=== PATIENT | male | born 1975 | race Caucasian/White ===

== ENCOUNTER 2023-02-28 19:54 | Emergency (ER) | payer BC, SELFPAY ==
[2023-02-28] VITALS (22 sets, daily range): BP systolic 128–186; BP diastolic 83–119; PULSE 84–128; RESP 16–18; TEMP 36.3; O2SAT 87–99; BMI 27.4
--- NOTE | 2023-02-28 20:38 | CRLHL7_ITS ---
For Patients: As a result of the Century Cures Act, medical imaging exams and procedure reports are released immediately into your electronic medical record. You may view this report before your referring provider. If you have questions, please contact your health care provider. INDICATIONS: Chest pain. TECHNIQUE: Chest 2 portable views. COMPARISON: None FINDINGS: No pneumothorax or pleural effusion. Lungs are clear. Cardiac and mediastinal contours are within normal limits. Upper abdomen and osseous structures as imaged show no acute abnormality. IMPRESSION: No evidence of acute cardiopulmonary disease. Dictated by Melvin Sheppard MD @ 02/28/2023 9:58:54 PM (Electronically Signed)
[2023-02-28 20:55] LABS: Troponin, Point-of-Care* 0.03 ng/ml (0.01-0.04)
--- NOTE | 2023-02-28 20:58 | ED.GENADULT ---
HPI - General Adult General Date Seen: 02/28/23 <Ning Sims MD - Last Filed: 03/01/23 14:43> Chief complaint: Chest Pain <Ning Sims MD - Last Filed: 03/01/23 14:43> Stated complaint: Tightness in chest <Ning Sims MD - Last Filed: 03/01/23 14:43> Time Seen by Provider: 02/28/23 20:32 <Ning Sims MD - Last Filed: 03/01/23 14:43> Source: patient <Ning Sims MD - Last Filed: 03/01/23 14:43> Mode of arrival: ambulatory <Ning Sims MD - Last Filed: 03/01/23 14:43> Limitations: no limitations <Ning Sims MD - Last Filed: 03/01/23 14:43> History of Present Illness HPI narrative: Patient is a 47-year-old male with in general very little medical care, smoker, who has been having some chest pain on and off for the past couple of weeks. He says he notices it when he tries to walk any amount of distance and it gets better when he stops. Today he was at home, not really doing anything active in developed same kind of chest pain associated with some tingling in his left arm and diaphoresis. He said he was unsure if he was having a problem with his heart or just a panic attack thinking about his heart but he decided he better get it checked out. He had chest pain and route to the hospital, but on arrival here says that it has resolved. He denies shortness of breath, abdominal pain, fevers, leg swelling or pain or other symptoms. <Ning Sims MD - Last Filed: 03/01/23 14:43> Related Data Allergies/adverse reactions: Allergies Allergy/AdvReac Type Severity Reaction Status Date / Time penicillin G Allergy Severe Verified 02/28/23 20:27 <Ning Sims MD - Last Filed: 03/01/23 14:43> Review of Systems Status of ROS: Reports: 10 or more systems reviewed and unremarkable except as noted in History and below <Ning Sims MD - Last Filed: 03/01/23 14:43> PFSH PFSH Social History: Social History Smoking Status: Current every day smoker <Ning Sims MD - Last Filed: 03/01/23 14:43> Exam Narrative: Exam Narrative: Vital signs as noted above. In general, an alert, well-appearing patient. Head: Normocephalic, atraumatic. Eyes: Pupils are equal reactive. Extraocular movements are full. Conjunctivae are normal. ENT: Mucous membranes are moist. Neck: Supple without lymphadenopathy. Heart: Regular rate and rhythm. No murmur or rub. Lungs: Clear bilaterally. No increased work of breathing, crackles or wheezes. Abdomen: Soft and nontender. No organomegaly. Extremities: Well perfused. No edema. No calf tenderness. Pulses intact. Neurologic: Patient is alert and oriented to person and place. Speech is fluent. Face is symmetric. Moves all extremities equally. Affect: Normal. Skin: Warm and dry. Well perfused. <Ning Sims MD - Last Filed: 03/01/23 14:43> Const: Vital Signs, click to edit/add: Vital Signs - 24 hr 02/28/23 20:00 02/28/23 20:24 02/28/23 20:50 Temperature 97.3 F L Pulse Rate 121 H Pulse Rate [Right Pulse Oximeter] 128 H Respiratory Rate 18 Blood Pressure 164/107 H Blood Pressure [Ri ght Upper Arm] 186/119 H Pulse Oximetry 99 99 95 Oxygen Delivery Me thod Room Air 02/28/23 20:51 02/28/23 21:00 02/28/23 21:01 Temperature Pulse Rate 115 H 113 H 114 H Pulse Rate [Right Pulse Oximeter] Respiratory Rate Blood Pressure 157/104 H Blood Pressure [Ri ght Upper Arm] Pulse Oximetry 97 96 96 Oxygen Delivery Me thod 02/28/23 21:15 02/28/23 21:16 02/28/23 21:30 Temperature Pulse Rate 113 H 117 H 100 Pulse Rate [Right Pulse Oximeter] Respiratory Rate Blood Pressure 145/98 H Blood Pressure [Ri ght Upper Arm] Pulse Oximetry 97 95 97 Oxygen Delivery Me thod 02/28/23 21:32 02/28/23 21:45 02/28/23 22:00 Temperature Pulse Rate 104 H 98 98 Pulse Rate [Right Pulse Oximeter] Respiratory Rate Blood Pressure 139/95 H Blood Pressure [Ri ght Upper Arm] Pulse Oximetry 97 97 96 Oxygen Delivery Me thod 02/28/23 22:02 02/28/23 22:15 02/28/23 22:16 Temperature Pulse Rate 100 100 101 H Pulse Rate [Right Pulse Oximeter] Respiratory Rate Blood Pressure 141/98 H 155/102 H Blood Pressure [Ri ght Upper Arm] Pulse Oximetry 98 96 96 Oxygen Delivery Me thod 02/28/23 22:30 02/28/23 22:31 02/28/23 22:46 Temperature Pulse Rate 84 95 89 Pulse Rate [Right Pulse Oximeter] Respiratory Rate 16 Blood Pressure 144/97 H 140/95 H Blood Pressure [Ri ght Upper Arm] Pulse Oximetry 87 L 96 95 Oxygen Delivery Me thod 02/28/23 23:01 02/28/23 23:16 02/28/23 23:32 Temperature Pulse Rate 88 88 84 Pulse Rate [Right Pulse Oximeter] Respiratory Rate 16 16 16 Blood Pressure 133/91 H 128/90 H 140/93 H Blood Pressure [Ri ght Upper Arm] Pulse Oximetry 96 97 96 Oxygen Delivery Me thod 02/28/23 23:46 03/01/23 00:01 03/01/23 00:16 Temperature Pulse Rate 85 80 70 Pulse Rate [Right Pulse Oximeter] Respiratory Rate 16 16 16 Blood Pressure 131/83 130/81 117/78 Blood Pressure [Ri ght Upper Arm] Pulse Oximetry 96 97 97 Oxygen Delivery Me thod 03/01/23 00:31 03/01/23 00:46 03/01/23 01:01 Temperature Pulse Rate 73 73 71 Pulse Rate [Right Pulse Oximeter] Respiratory Rate 16 16 16 Blood Pressure 114/76 110/72 109/73 Blood Pressure [Ri ght Upper Arm] Pulse Oximetry 95 96 94 Oxygen Delivery Me thod 03/01/23 01:16 03/01/23 01:32 03/01/23 01:46 Temperature Pulse Rate 86 71 66 Pulse Rate [Right Pulse Oximeter] Respiratory Rate 16 16 16 Blood Pressure 110/73 113/78 103/73 Blood Pressure [Ri ght Upper Arm] Pulse Oximetry 95 97 96 Oxygen Delivery Me thod 03/01/23 02:01 03/01/23 02:32 03/01/23 02:48 Temperature Pulse Rate 63 65 71 Pulse Rate [Right Pulse Oximeter] Respiratory Rate 16 16 16 Blood Pressure 117/69 112/71 122/87 Blood Pressure [Ri ght Upper Arm] Pulse Oximetry 95 96 98 Oxygen Delivery Me thod 03/01/23 03:01 03/01/23 04:01 03/01/23 05:01 Temperature Pulse Rate 64 70 65 Pulse Rate [Right Pulse Oximeter] Respiratory Rate 16 16 16 Blood Pressure 118/84 121/82 122/85 Blood Pressure [Ri ght Upper Arm] Pulse Oximetry 96 96 97 Oxygen Delivery Me thod 03/01/23 06:01 03/01/23 07:00 03/01/23 07:06 Temperature Pulse Rate 70 59 L 79 Pulse Rate [Right Pulse Oximeter] Respiratory Rate 16 Blood Pressure 125/87 Blood Pressure [Ri ght Upper Arm] Pulse Oximetry 96 95 97 Oxygen Delivery Me thod 03/01/23 08:00 03/01/23 08:01 03/01/23 08:02 Temperature Pulse Rate 66 61 65 Pulse Rate [Right Pulse Oximeter] Respiratory Rate Blood Pressure 125/94 H Blood Pressure [Ri ght Upper Arm] Pulse Oximetry 96 96 97 Oxygen Delivery Me thod 03/01/23 09:00 03/01/23 09:02 03/01/23 09:22 Temperature Pulse Rate 62 66 67 Pulse Rate [Right Pulse Oximeter] Respiratory Rate Blood Pressure 119/85 141/88 H Blood Pressure [Ri ght Upper Arm] Pulse Oximetry 96 97 97 Oxygen Delivery Me thod <Ning Sims MD - Last Filed: 03/01/23 14:43> Vital Signs, click to edit/add: Vital Signs - 24 hr 02/28/23 20:00 02/28/23 20:24 02/28/23 20:50 Temperature 97.3 F L Pulse Rate 121 H Pulse Rate [Right Pulse Oximeter] 128 H Respiratory Rate 18 Blood Pressure 164/107 H Blood Pressure [Ri ght Upper Arm] 186/119 H Pulse Oximetry 99 99 95 Oxygen Delivery Me thod Room Air 02/28/23 20:51 02/28/23 21:00 02/28/23 21:01 Temperature Pulse Rate 115 H 113 H 114 H Pulse Rate [Right Pulse Oximeter] Respiratory Rate Blood Pressure 157/104 H Blood Pressure [Ri ght Upper Arm] Pulse Oximetry 97 96 96 Oxygen Delivery Me thod 02/28/23 21:15 02/28/23 21:16 02/28/23 21:30 Temperature Pulse Rate 113 H 117 H 100 Pulse Rate [Right Pulse Oximeter] Respiratory Rate Blood Pressure 145/98 H Blood Pressure [Ri ght Upper Arm] Pulse Oximetry 97 95 97 Oxygen Delivery Me thod 02/28/23 21:32 02/28/23 21:45 02/28/23 22:00 Temperature Pulse Rate 104 H 98 98 Pulse Rate [Right Pulse Oximeter] Respiratory Rate Blood Pressure 139/95 H Blood Pressure [Ri ght Upper Arm] Pulse Oximetry 97 97 96 Oxygen Delivery Me thod 02/28/23 22:02 02/28/23 22:15 02/28/23 22:16 Temperature Pulse Rate 100 100 101 H Pulse Rate [Right Pulse Oximeter] Respiratory Rate Blood Pressure 141/98 H 155/102 H Blood Pressure [Ri ght Upper Arm] Pulse Oximetry 98 96 96 Oxygen Delivery Me thod 02/28/23 22:30 02/28/23 22:31 02/28/23 22:46 Temperature Pulse Rate 84 95 89 Pulse Rate [Right Pulse Oximeter] Respiratory Rate 16 Blood Pressure 144/97 H 140/95 H Blood Pressure [Ri ght Upper Arm] Pulse Oximetry 87 L 96 95 Oxygen Delivery Me thod 02/28/23 23:01 02/28/23 23:16 02/28/23 23:32 Temperature Pulse Rate 88 88 84 Pulse Rate [Right Pulse Oximeter] Respiratory Rate 16 16 16 Blood Pressure 133/91 H 128/90 H 140/93 H Blood Pressure [Ri ght Upper Arm] Pulse Oximetry 96 97 96 Oxygen Delivery Me thod 02/28/23 23:46 03/01/23 00:01 03/01/23 00:16 Temperature Pulse Rate 85 80 70 Pulse Rate [Right Pulse Oximeter] Respiratory Rate 16 16 16 Blood Pressure 131/83 130/81 117/78 Blood Pressure [Ri ght Upper Arm] Pulse Oximetry 96 97 97 Oxygen Delivery Me thod 03/01/23 00:31 03/01/23 00:46 03/01/23 01:01 Temperature Pulse Rate 73 73 71 Pulse Rate [Right Pulse Oximeter] Respiratory Rate 16 16 16 Blood Pressure 114/76 110/72 109/73 Blood Pressure [Ri ght Upper Arm] Pulse Oximetry 95 96 94 Oxygen Delivery Me thod 03/01/23 01:16 03/01/23 01:32 03/01/23 01:46 Temperature Pulse Rate 86 71 66 Pulse Rate [Right Pulse Oximeter] Respiratory Rate 16 16 16 Blood Pressure 110/73 113/78 103/73 Blood Pressure [Ri ght Upper Arm] Pulse Oximetry 95 97 96 Oxygen Delivery Me thod 03/01/23 02:01 03/01/23 02:32 03/01/23 02:48 Temperature Pulse Rate 63 65 71 Pulse Rate [Right Pulse Oximeter] Respiratory Rate 16 16 16 Blood Pressure 117/69 112/71 122/87 Blood Pressure [Ri ght Upper Arm] Pulse Oximetry 95 96 98 Oxygen Delivery Me thod 03/01/23 03:01 03/01/23 04:01 03/01/23 05:01 Temperature Pulse Rate 64 70 65 Pulse Rate [Right Pulse Oximeter] Respiratory Rate 16 16 16 Blood Pressure 118/84 121/82 122/85 Blood Pressure [Ri ght Upper Arm] Pulse Oximetry 96 96 97 Oxygen Delivery Me thod 03/01/23 06:01 03/01/23 07:00 03/01/23 07:06 Temperature Pulse Rate 70 59 L 79 Pulse Rate [Right Pulse Oximeter] Respiratory Rate 16 Blood Pressure 125/87 Blood Pressure [Ri ght Upper Arm] Pulse Oximetry 96 95 97 Oxygen Delivery Me thod 03/01/23 08:00 03/01/23 08:01 03/01/23 08:02 Temperature Pulse Rate 66 61 65 Pulse Rate [Right Pulse Oximeter] Respiratory Rate Blood Pressure 125/94 H Blood Pressure [Ri ght Upper Arm] Pulse Oximetry 96 96 97 Oxygen Delivery Me thod 03/01/23 09:00 03/01/23 09:02 03/01/23 09:22 Temperature Pulse Rate 62 66 67 Pulse Rate [Right Pulse Oximeter] Respiratory Rate Blood Pressure 119/85 141/88 H Blood Pressure [Ri ght Upper Arm] Pulse Oximetry 96 97 97 Oxygen Delivery Me thod <Osvaldo Aguirre DO - Last Filed: 03/01/23 05:10> Documenting provider has reviewed patient's vital signs: yes <Ning Sims MD - Last Filed: 03/01/23 14:43> Course Course ED Course: Patient arrived at about 8:00 p.m. was triaged at 8:24 and had an EKG at that time. I reviewed this initial EKG, which showed a sinus tachycardia at a ventricular rate of 130. He had ST elevation noted in V1 and V2, hyper acute appearing T-waves in the precordium and ST depression in leads 2 3 and F. He also had ST elevation noted in AVR. His initial EKG was concerning for developing STEMI. I went talk to the patient, and at the time I spoke with him he was not having any symptoms. I did look with the bedside ultrasound I did not see clear evidence of wall motion abnormality, no pericardial effusion. I called Cardiology at about 835 to have them review the EKG given that he was not having any symptoms at that time. In the meantime, I did give him a dose of metoprolol given he was significantly hypertensive and tachycardic, and the EKG was repeated at 8:45. The 2nd EKG shows resolution of the ST depression and ST elevation as well as the hyperacute appearing T-waves. He still has an elevated heart rate of 120. He says he feels fine at this time. He took 2 aspirin at home. Other labs are pending at this time including a point of care troponin. Chest x-ray is ordered as well. I spoke with Cardiology at 9:20; I reviewed the EKGs verbally with the filing and polishing supervisor as well as the patient's recent symptoms. He agrees with heparinization and plan for angiogram although the at this time patient does not meet criteria for STEMI/emergent catheterization. His initial troponin was 0.03. CBC shows a normal white blood cell count, hemoglobin of 15.9, metabolic panel is unremarkable, LFTs are unremarkable. CRP is less than 0.5. TSH, D-dimer pending as well as a repeat troponin. I am starting a heparin bolus and drip. Unfortunately, [facility], [place], [facility], [facility] do not have bed availability. I am waiting to hear back from [facility]. Patient is on the wait list for a telemetry bed at [facility] although given that it is 9:40 p.m. my suspicion is a bed would not be available until tomorrow. For now plan is to have him stay in the ER overnight. Low threshold for repeat EKGs for any recurrence of symptoms, if symptoms are recurrent/persistent, EKGs changes are present, or he becomes unstable, emergent transfer. Repeat troponin approximately 60 minutes after the 1st was 0.06. Chest x-ray by my review shows no acute findings, mediastinum is unremarkable. After metoprolol, blood pressure 145/98, heart rate 100. Patient remains symptom-free. D-dimer is still pending, but overall suspicion for PE or dissection is relatively low given intermittent chest pain with exertion over the past couple of weeks and EKG changes on arrival. Patient was still here at 8:00 a.m. when I started my next shift. D-dimer was negative. Had a couple of repeat troponins and peaked at 0.51 this morning at 6:30 a.m.. No further symptoms. Repeat EKG reportedly normal per the overnight doctor. Patient accepted at [facility] and transferred via ground without incident. <Ning Sims MD - Last Filed: 03/01/23 14:43> Vital Signs Vital signs: Initial Vital Signs Pulse Oximetry 99 02/28/23 20:00 Vital Signs Pulse Oximetry 99 02/28/23 20:00 Temperature 97.3 F L 02/28/23 20:24 Pulse Rate 67 03/01/23 09:22 Respiratory Rate 16 03/01/23 06:01 Blood Pressure 141/88 H 03/01/23 09:22 Pulse Oximetry 97 03/01/23 09:22 Oxygen Delivery Method Room Air 02/28/23 20:24 <Ning Sims MD - Last Filed: 03/01/23 14:43> Initial Vital Signs Pulse Oximetry 99 02/28/23 20:00 Vital Signs Pulse Oximetry 99 02/28/23 20:00 Temperature 97.3 F L 02/28/23 20:24 Pulse Rate 67 03/01/23 09:22 Respiratory Rate 16 03/01/23 06:01 Blood Pressure 141/88 H 03/01/23 09:22 Pulse Oximetry 97 03/01/23 09:22 Oxygen Delivery Method Room Air 02/28/23 20:24 <Osvaldo Aguirre DO - Last Filed: 03/01/23 05:10> Medical Decision Making MDM Narrative Medical decision making narrative: Patient was signed out to me for the overnight shift. He still pending a bed at [facility]. Patient continues to have minimal chest pain. Repeat troponin at 02:45 shows has raised to 0.32. States his symptoms are unchanged and vitals are stable at this time. We did do a repeat EKG showing normal sinus rhythm with a rate 64 beats per minute, normal intervals, normal axis, no ST or T-wave abnormalities. This is greatly improved compared to his previous EKGs. <Osvaldo Aguirre, DO - Last Filed: 03/01/23 05:10> Lab Data Labs: Lab Results 02/28/23 02/28/23 02/28/23 Range/Units 20:41 21:06 21:38 WBC 9.46 (4.50-11.00) K/uL RBC 4.96 (4.30-5.90) m/uL Hgb 15.9 (13.5-17.5) gm/dL Hct 45.5 (37.0-53.0) % MCV 92 (80-100) fL MCH 32 (26-34) pg MCHC 35 (32-36) gm/dL RDW Coeff of [place] 13.0 (11.5-15.5) % Plt Count 222 (140-440) K/uL Neut % (Auto) 78.9 H (42.0-72.0) % Lymph % (Auto) 13.5 L (20-44) % [place] % (Auto) 6.1 (0.0-11.0) % Eos % (Auto) 1.1 (0.0-7.0) % Baso % (Auto) 0.3 (0.0-3.0) % Neut # (Auto) 7.50 H (1.7-7.0) K/uL Lymph # (Auto) 1.30 (0.90-2.90) K/uL [place] # (Auto) 0.60 (0.00-0.90) K/UL Eos # (Auto) 0.10 (0.00-0.50) K/uL Baso # (Auto) 0.03 (0.00-0.30) K/uL Abs Immat Gran (auto) 0.01 (0.00-0.30) K/uL Imm/Tot Granulo (auto) 0.1 % INR 1.02 (0.91-1.10) APTT 27 (23-33) Seconds D-Dimer Quant (PE/DVT) 0.37 (0.00-0.50) ug/ml Sodium 136 (135-149) mmol/L Potassium 3.6 (3.6-5.1) mmol/L Chloride 101 (96-114) mmol/L Carbon Dioxide 26 (20-32) mmol/L Anion Gap 9 (7-15) mEq/L BUN 13 (5-24) mg/dL Creatinine 0.9 (0.5-1.5) mg/dL Estimated Creat Clear 98.17 Estimated GFR 106 ml/min Glucose 150 H (60-115) mg/dL Calcium 9.0 (8.4-10.6) mg/dL Total Bilirubin 0.8 (0.1-1.5) mg/dL Direct Bilirubin 0.0 (0.0-0.5) mg/dL AST 48 H (12-35) U/L ALT 19 (4-50) U/L Alkaline Phosphatase 81 (40-150) U/L C-Reactive Protein < 0.5 L (0.5-1.0) mg/dL Total Protein 7.0 (6.0-8.3) g/dL Albumin 4.2 (3.3-5.0) g/dL TSH 0.404 (0.270-4.200) uIU/mL POC Troponin I 0.03 0.06 H (0.01-0.04) ng/ml 03/01/23 03/01/23 03/01/23 Range/Units 02:45 02:46 06:30 WBC 9.05 (4.50-11.00) K/uL RBC 5.04 (4.30-5.90) m/uL Hgb 16.2 (13.5-17.5) gm/dL Hct 46.7 (37.0-53.0) % MCV 93 (80-100) fL MCH 32 (26-34) pg MCHC 35 (32-36) gm/dL RDW Coeff of Francisco (11.5-15.5) % Plt Count 211 (140-440) K/uL Neut % (Auto) (42.0-72.0) % Lymph % (Auto) (20-44) % [place] % (Auto) (0.0-11.0) % Eos % (Auto) (0.0-7.0) % Baso % (Auto) (0.0-3.0) % Neut # (Auto) (1.7-7.0) K/uL Lymph # (Auto) (0.90-2.90) K/uL [place] # (Auto) (0.00-0.90) K/UL Eos # (Auto) (0.00-0.50) K/uL Baso # (Auto) (0.00-0.30) K/uL Abs Immat Gran (auto) (0.00-0.30) K/uL Imm/Tot Granulo (auto) % INR 1.01 (0.91-1.10) APTT 69 H (23-33) Seconds D-Dimer Quant (PE/DVT) (0.00-0.50) ug/ml Sodium (135-149) mmol/L Potassium (3.6-5.1) mmol/L Chloride (96-114) mmol/L Carbon Dioxide (20-32) mmol/L Anion Gap (7-15) mEq/L BUN (5-24) mg/dL Creatinine (0.5-1.5) mg/dL Estimated Creat Clear Estimated GFR ml/min Glucose (60-115) mg/dL Calcium (8.4-10.6) mg/dL Total Bilirubin (0.1-1.5) mg/dL Direct Bilirubin (0.0-0.5) mg/dL AST (12-35) U/L ALT (4-50) U/L Alkaline Phosphatase (40-150) U/L C-Reactive Protein (0.5-1.0) mg/dL Total Protein (6.0-8.3) g/dL Albumin (3.3-5.0) g/dL TSH (0.270-4.200) uIU/mL POC Troponin I 0.32 H 0.51 H (0.01-0.04) ng/ml 03/01/23 Range/Units 09:28 WBC (4.50-11.00) K/uL RBC (4.30-5.90) m/uL Hgb (13.5-17.5) gm/dL Hct (37.0-53.0) % MCV (80-100) fL MCH (26-34) pg MCHC (32-36) gm/dL RDW Coeff of Francisco (11.5-15.5) % Plt Count (140-440) K/uL Neut % (Auto) (42.0-72.0) % Lymph % (Auto) (20-44) % [place] % (Auto) (0.0-11.0) % Eos % (Auto) (0.0-7.0) % Baso % (Auto) (0.0-3.0) % Neut # (Auto) (1.7-7.0) K/uL Lymph # (Auto) (0.90-2.90) K/uL [place] # (Auto) (0.00-0.90) K/UL Eos # (Auto) (0.00-0.50) K/uL Baso # (Auto) (0.00-0.30) K/uL Abs Immat Gran (auto) (0.00-0.30) K/uL Imm/Tot Granulo (auto) % INR (0.91-1.10) APTT 46 H (23-33) Seconds D-Dimer Quant (PE/DVT) (0.00-0.50) ug/ml Sodium (135-149) mmol/L Potassium (3.6-5.1) mmol/L Chloride (96-114) mmol/L Carbon Dioxide (20-32) mmol/L Anion Gap (7-15) mEq/L BUN (5-24) mg/dL Creatinine (0.5-1.5) mg/dL Estimated Creat Clear Estimated GFR ml/min Glucose (60-115) mg/dL Calcium (8.4-10.6) mg/dL Total Bilirubin (0.1-1.5) mg/dL Direct Bilirubin (0.0-0.5) mg/dL AST (12-35) U/L ALT (4-50) U/L Alkaline Phosphatase (40-150) U/L C-Reactive Protein (0.5-1.0) mg/dL Total Protein (6.0-8.3) g/dL Albumin (3.3-5.0) g/dL TSH (0.270-4.200) uIU/mL POC Troponin I (0.01-0.04) ng/ml <Ning Sims MD - Last Filed: 03/01/23 14:43> Lab Results 02/28/23 02/28/23 02/28/23 Range/Units 20:41 21:06 21:38 WBC 9.46 (4.50-11.00) K/uL RBC 4.96 (4.30-5.90) m/uL Hgb 15.9 (13.5-17.5) gm/dL Hct 45.5 (37.0-53.0) % MCV 92 (80-100) fL MCH 32 (26-34) pg MCHC 35 (32-36) gm/dL RDW Coeff of [place] 13.0 (11.5-15.5) % Plt Count 222 (140-440) K/uL Neut % (Auto) 78.9 H (42.0-72.0) % Lymph % (Auto) 13.5 L (20-44) % [place] % (Auto) 6.1 (0.0-11.0) % Eos % (Auto) 1.1 (0.0-7.0) % Baso % (Auto) 0.3 (0.0-3.0) % Neut # (Auto) 7.50 H (1.7-7.0) K/uL Lymph # (Auto) 1.30 (0.90-2.90) K/uL [place] # (Auto) 0.60 (0.00-0.90) K/UL Eos # (Auto) 0.10 (0.00-0.50) K/uL Baso # (Auto) 0.03 (0.00-0.30) K/uL Abs Immat Gran (auto) 0.01 (0.00-0.30) K/uL Imm/Tot Granulo (auto) 0.1 % INR 1.02 (0.91-1.10) APTT 27 (23-33) Seconds D-Dimer Quant (PE/DVT) 0.37 (0.00-0.50) ug/ml Sodium 136 (135-149) mmol/L Potassium 3.6 (3.6-5.1) mmol/L Chloride 101 (96-114) mmol/L Carbon Dioxide 26 (20-32) mmol/L Anion Gap 9 (7-15) mEq/L BUN 13 (5-24) mg/dL Creatinine 0.9 (0.5-1.5) mg/dL Estimated Creat Clear 98.17 Estimated GFR 106 ml/min Glucose 150 H (60-115) mg/dL Calcium 9.0 (8.4-10.6) mg/dL Total Bilirubin 0.8 (0.1-1.5) mg/dL Direct Bilirubin 0.0 (0.0-0.5) mg/dL AST 48 H (12-35) U/L ALT 19 (4-50) U/L Alkaline Phosphatase 81 (40-150) U/L C-Reactive Protein < 0.5 L (0.5-1.0) mg/dL Total Protein 7.0 (6.0-8.3) g/dL Albumin 4.2 (3.3-5.0) g/dL TSH 0.404 (0.270-4.200) uIU/mL POC Troponin I 0.03 0.06 H (0.01-0.04) ng/ml 03/01/23 03/01/23 03/01/23 Range/Units 02:45 02:46 06:30 WBC 9.05 (4.50-11.00) K/uL RBC 5.04 (4.30-5.90) m/uL Hgb 16.2 (13.5-17.5) gm/dL Hct 46.7 (37.0-53.0) % MCV 93 (80-100) fL MCH 32 (26-34) pg MCHC 35 (32-36) gm/dL RDW Coeff of Francisco (11.5-15.5) % Plt Count 211 (140-440) K/uL Neut % (Auto) (42.0-72.0) % Lymph % (Auto) (20-44) % [place] % (Auto) (0.0-11.0) % Eos % (Auto) (0.0-7.0) % Baso % (Auto) (0.0-3.0) % Neut # (Auto) (1.7-7.0) K/uL Lymph # (Auto) (0.90-2.90) K/uL [place] # (Auto) (0.00-0.90) K/UL Eos # (Auto) (0.00-0.50) K/uL Baso # (Auto) (0.00-0.30) K/uL Abs Immat Gran (auto) (0.00-0.30) K/uL Imm/Tot Granulo (auto) % INR 1.01 (0.91-1.10) APTT 69 H (23-33) Seconds D-Dimer Quant (PE/DVT) (0.00-0.50) ug/ml Sodium (135-149) mmol/L Potassium (3.6-5.1) mmol/L Chloride (96-114) mmol/L Carbon Dioxide (20-32) mmol/L Anion Gap (7-15) mEq/L BUN (5-24) mg/dL Creatinine (0.5-1.5) mg/dL Estimated Creat Clear Estimated GFR ml/min Glucose (60-115) mg/dL Calcium (8.4-10.6) mg/dL Total Bilirubin (0.1-1.5) mg/dL Direct Bilirubin (0.0-0.5) mg/dL AST (12-35) U/L ALT (4-50) U/L Alkaline Phosphatase (40-150) U/L C-Reactive Protein (0.5-1.0) mg/dL Total Protein (6.0-8.3) g/dL Albumin (3.3-5.0) g/dL TSH (0.270-4.200) uIU/mL POC Troponin I 0.32 H 0.51 H (0.01-0.04) ng/ml 03/01/23 Range/Units 09:28 WBC (4.50-11.00) K/uL RBC (4.30-5.90) m/uL Hgb (13.5-17.5) gm/dL Hct (37.0-53.0) % MCV (80-100) fL MCH (26-34) pg MCHC (32-36) gm/dL RDW Coeff of Francisco (11.5-15.5) % Plt Count (140-440) K/uL Neut % (Auto) (42.0-72.0) % Lymph % (Auto) (20-44) % [place] % (Auto) (0.0-11.0) % Eos % (Auto) (0.0-7.0) % Baso % (Auto) (0.0-3.0) % Neut # (Auto) (1.7-7.0) K/uL Lymph # (Auto) (0.90-2.90) K/uL [place] # (Auto) (0.00-0.90) K/UL Eos # (Auto) (0.00-0.50) K/uL Baso # (Auto) (0.00-0.30) K/uL Abs Immat Gran (auto) (0.00-0.30) K/uL Imm/Tot Granulo (auto) % INR (0.91-1.10) APTT 46 H (23-33) Seconds D-Dimer Quant (PE/DVT) (0.00-0.50) ug/ml Sodium (135-149) mmol/L Potassium (3.6-5.1) mmol/L Chloride (96-114) mmol/L Carbon Dioxide (20-32) mmol/L Anion Gap (7-15) mEq/L BUN (5-24) mg/dL Creatinine (0.5-1.5) mg/dL Estimated Creat Clear Estimated GFR ml/min Glucose (60-115) mg/dL Calcium (8.4-10.6) mg/dL Total Bilirubin (0.1-1.5) mg/dL Direct Bilirubin (0.0-0.5) mg/dL AST (12-35) U/L ALT (4-50) U/L Alkaline Phosphatase (40-150) U/L C-Reactive Protein (0.5-1.0) mg/dL Total Protein (6.0-8.3) g/dL Albumin (3.3-5.0) g/dL TSH (0.270-4.200) uIU/mL POC Troponin I (0.01-0.04) ng/ml <Osvaldo Aguirre DO - Last Filed: 03/01/23 05:10> Discharge Plan Discharge Patient Disposition: [facility] <Ning Sims MD - Last Filed: 03/01/23 14:43> Stand Alone Forms: MyHealth Info Instructions <Ning Sims MD - Last Filed: 03/01/23 14:43>
[2023-02-28 21:12] LABS: Basophils Absolute Auto 0.03 K/uL (0.00-0.30); Basophils Percent Auto 0.3 % (0.0-3.0); Eosinophils Percent Auto 1.1 % (0.0-7.0); Hematocrit 45.5 % (37.0-53.0); Hemoglobin* 15.9 gm/dL (13.5-17.5); Immature Granulocytes Abs Auto 0.01 K/uL (0.00-0.30); Immature Granulocytes Pct Auto 0.1 %; Lymphocytes Percent Auto 13.5 % (20-44); Mean Corpuscular HGB Conc 35 gm/dL (32-36); Mean Corpuscular Hemoglobin 32 pg (26-34); Mean Corpuscular Volume 92 fL (80-100); Monocytes Percent Auto 6.1 % (0.0-11.0); Neutrophils Percent Auto 78.9 % (42.0-72.0); Platelet Count* 222 K/uL (140-440); Red Blood Count 4.96 m/uL (4.30-5.90); White Blood Count* 9.46 K/uL (4.50-11.00)
[2023-02-28 21:13] LABS: Slide Review Reflex No
[2023-02-28 21:25] LABS: Chloride* 101 mmol/L (96-114); Potassium* 3.6 mmol/L (3.6-5.1); Sodium* 136 mmol/L (135-149)
[2023-02-28 21:26] LABS: Albumin* 4.2 g/dL (3.3-5.0)
[2023-02-28 21:28] LABS: Creatinine* 0.9 mg/dL (0.5-1.5); Est. Creatinine Clearance* 98.17; Estimated Glomerular Filt Rate 106 ml/min
[2023-02-28 21:29] LABS: Anion Gap 9 mEq/L (7-15); Bilirubin Total* 0.8 mg/dL (0.1-1.5); Blood Urea Nitrogen* 13 mg/dL (5-24); Carbon Dioxide* 26 mmol/L (20-32); Glucose* 150 mg/dL (60-115)
[2023-02-28 21:30] LABS: Alanine Aminotransferase* 19 U/L (4-50); Alkaline Phosphatase* 81 U/L (40-150); Aspartate Amino Transferase* 48 U/L (12-35); Partial Thromboplastin Time* 27 Seconds (23-33)
[2023-02-28 21:31] LABS: INR 1.02 (0.91-1.10)
[2023-02-28] MEDS: METOPROLOL TARTRATE 1 MG/ML inj 5 MG IVP (21:32)
[2023-02-28 21:33] LABS: C Reactive Protein* < 0.5 mg/dL (0.5-1.0)
[2023-02-28 21:50] LABS: Troponin, Point-of-Care* 0.06 ng/ml (0.01-0.04)
[2023-02-28] MEDS: HEPARIN 25,000 UNIT/500 ML BAG 20 UNIT IV (21:50)
[2023-02-28] MEDS: HEPARIN 5,000 UNIT/0.5 ML INJ 4000 UNIT IVP (21:51)
[2023-02-28 22:05] LABS: D Dimer Quantitative* 0.37 ug/ml (0.00-0.50)
[2023-02-28 22:13] LABS: TSH With Reflex to FT4* 0.404 uIU/mL (0.270-4.200)
--- NOTE | 2023-02-28 22:49 | ED.NURSE ---
pt. with no c/o at this time. vitals stable. transfer to [facility] pending. heparin gtt per protocol.
[2023-03-01] VITALS (23 sets, daily range): BP systolic 103–141; BP diastolic 69–94; PULSE 59–86; RESP 16; O2SAT 94–98
[2023-03-01 03:04] LABS: Troponin, Point-of-Care* 0.32 ng/ml (0.01-0.04)
[2023-03-01 03:18] LABS: Partial Thromboplastin Time* 69 Seconds (23-33)
[2023-03-01 03:50] LABS: INR 1.01 (0.91-1.10); Prothrombin Time 13.9 Seconds
[2023-03-01 06:33] LABS: Hematocrit 46.7 % (37.0-53.0); Hemoglobin* 16.2 gm/dL (13.5-17.5); Mean Corpuscular HGB Conc 35 gm/dL (32-36); Mean Corpuscular Hemoglobin 32 pg (26-34); Mean Corpuscular Volume 93 fL (80-100); Platelet Count* 211 K/uL (140-440); Red Blood Count 5.04 m/uL (4.30-5.90); White Blood Count* 9.05 K/uL (4.50-11.00)
[2023-03-01 06:40] LABS: Troponin, Point-of-Care* 0.51 ng/ml (0.01-0.04)
[2023-03-01 06:42] LABS: Slide Review Reflex No
--- NOTE | 2023-03-01 09:16 | ED.NURSE ---
RN to RN report given. Patient to transfer to [place] [id number]
[2023-03-01 09:49] LABS: Partial Thromboplastin Time* 46 Seconds (23-33)
--- NOTE | 2023-03-01 10:40 | ED.NURSE ---
PTT at 0928 is 46, no changes needed to Heparin infusion dose.
--- NOTE | 2023-03-01 10:49 | ED.NURSE ---
Patient transported via [facility] with Heparin infusing.
== END 2023-03-01 11:01 | disposition short-term general hospital (02) ==
PROVIDERS: Student in an Organized Health Care Education/Training Program; Emergency Provider Emergency Medicine; PCP Family Medicine
DX: R07.9 Chest pain, unspecified (principal)
CPT/HCPCS: 36415; 71045; 80048; 80076; 84443; 84484; 85025; 85027; 85379; 85610; 85730; 86140; 93005; 94761; 96374; 96375; 99284; 99285; J1644

== ENCOUNTER 2023-03-01 10:35 | Outpatient (CLI) | payer BC, SELFPAY | END 2023-03-01 10:36 | disposition home or self-care (01) | PROVIDERS: PCP Family Medicine; Visit Provider Emergency Medicine | DX: I20.9 Angina pectoris, unspecified (principal) | CPT/HCPCS: A0425; A0427 ==

== ENCOUNTER 2024-03-28 14:12 | Outpatient (CLI) | payer BC, SELFPAY ==
--- NOTE | 2024-03-28 14:30 | CRLHL7_ITS ---
For Patients: As a result of the Century Cures Act, medical imaging exams and procedure reports are released immediately into your electronic medical record. You may view this report before your referring provider. If you have questions, please contact your health care provider. INDICATION: Lumbar radiculopathy. TECHNIQUE : Lumbar spine MRI without contrast. COMPARISON: Lumbar spine MRI from 07/01/2010. FINDINGS : Five lumbar type vertebral bodies, with the last fully formed disc space designated as L5-S1. Normal lumbar lordotic curve. No recent compression fracture or marrow replacing process. Lower cord/conus signal is normal. The conus terminates at a normal location. No intradural lesion. No extraspinal soft tissue abnormalities. Discs/Endplates: At L5-S1, moderate disc height loss and disc desiccation. At T11-12 and T12-L1, mild disc height loss disc desiccation. L3-4 and L4-5 disc dehydration. L1-2 and L2-3 discs are normal in appearance. Findings at individual levels as follows: T11-12: Mild disc bulge. No spinal canal or neural foraminal stenosis. T12-L1: Mild disc bulge with a shallow right subarticular protrusion component. No spinal canal or neural foraminal stenosis. L1-2: No spinal canal or neural foraminal stenosis. L2-3: No spinal canal or neural foraminal stenosis. L3-4: Mild disc bulge with superimposed left far lateral protrusion which contacts the left L3 nerve root. Mild left neural foraminal stenosis. No right neural foraminal stenosis or spinal canal stenosis. L4-5: At L4-5, a left-sided laminotomy. Mild disc bulge. Bilateral low-grade facet arthrosis. Mild to moderate left and mild right neural foraminal stenosis. No spinal canal stenosis. L5-S1: At L5-S1, a left-sided laminotomy. A 6 millimeter left subarticular disc protrusion mildly compresses the traversing left S1 nerve root. A focal right subarticular disc extrusion with slight caudal migration posteriorly displaces/mildly compresses the traversing right S1 nerve root. Mild right and moderate left neuroforaminal stenosis. Imaged SI joints: Minimal arthrosis. Imaged sacrum: Within normal limits. IMPRESSION: 1. Since prior MRI, new laminotomy changes at L4-5 and L5-S1 on the left. 2. At L5-S1, a left subarticular protrusion mildly compresses the traversing left S1 nerve root. Previously seen extruded component is no longer present. A focal right subarticular disc extrusion with slight caudal migration posteriorly displaces and mildly compresses the traversing right S1 nerve root. This is new since prior. 3. At L3-4, a left far lateral disc protrusion which contacts the left L3 nerve root. New since prior. Dictated by Ramone Duenas MD @ 03/29/2024 6:33:22 PM (Electronically Signed)
== END 2024-03-28 14:13 | disposition home or self-care (01) ==
PROVIDERS: PCP Family Medicine; Visit Provider Family Medicine
DX: M54.16 Radiculopathy, lumbar region (principal); M51.27 Other intervertebral disc displacement, lumbosacral region; M51.26 Other intervertebral disc displacement, lumbar region; R29.898 Other symptoms and signs involving the musculoskeletal system
CPT/HCPCS: 72148

== ENCOUNTER 2024-05-01 06:44 | Outpatient (CLI) | payer BC, SELFPAY | END 2024-05-01 06:45 | disposition home or self-care (01) | LOC: INJ CL 06:44 | PROVIDERS: PCP Family Medicine; Visit Provider Family Medicine | DX: M54.16 Radiculopathy, lumbar region (principal); M51.369 Other intervertebral disc degeneration, lumbar region without mention of lumbar back pain or lower extremity pain | CPT/HCPCS: 64483; J1100; Q9966 ==